=== PATIENT | female | born 1985 | race African-American/Black ===

== ENCOUNTER 2017-05-20 04:26 | Emergency (ER) | payer MEDICAID ==
[~2017-05-20] VITALS: Ht 149.9 cm; Wt 118.0 kg
[2017-05-20] MEDS ORDERED: SODIUM CHLORIDE 0.9% 1,000 ML IV ONE (06:39)
[2017-05-20] MEDS ORDERED: METHYLPREDNISOLONE SOD SUCC 125 MG/2 ML VIAL IV ONE (06:45)
[2017-05-20] MEDS ORDERED: CLINDAMYCIN 600 MG in DEXTROSE 5% WATER 50 ML IV ONE (06:45)
[2017-05-20] MEDS ORDERED: KETOROLAC 30MG/ML VIAL IV ONE (06:45)
[2017-05-20 07:06] LABS: BASOPHILS % 0.9 % (0.0-2.0); EOSINOPHILS % 1.9 % (0.0-5.0); HEMOGLOBIN. 12.4 g/dL (12.0-16.0); LYMPHOCYTES % 21.2 % (20.0-50.0); MEAN CORPUSCULAR HEMOGLOBIN 23.7 pg (28.0-32.0); MEAN CORPUSCULAR VOLUME 74.8 fL (81.0-99.0); MEAN PLATELET VOLUME 8.4 fl (7.4-10.4); MONOCYTES % 9.4 % (2.0-8.0); NEUTROPHILS % 66.6 % (40.0-76.0); PLATELET 265 x1000/uL (130-400); RED BLOOD CELL COUNT 5.22 mill/uL (4.2-5.4); RED CELL DISTRIBUTION WIDTH 15.5 % (11.6-14.6)
[2017-05-20 07:18] LABS: CARBON DIOXIDE 29 mEq/L (21-32); CHLORIDE 101 mEq/L (98-107); HCG SCREEN NEGATIVE
[2017-05-20 08:23] VITALS: BP 122/78
== END 2017-05-20 08:24 | disposition home or self-care (01) ==
LOC: ER 05:47
DX: J36 Peritonsillar abscess (principal); F17.200 Nicotine dependence, unspecified, uncomplicated; F12.10 Cannabis abuse, uncomplicated; J45.909 Unspecified asthma, uncomplicated
CPT/HCPCS: 36415; 80053; 82962; 84703; 85025; 87070; 87077; 87430; 96361; 96365; 96375; 99284; J1885; J2930; J3490; J7030; Z7610; J7060

== ENCOUNTER 2017-06-19 04:41 | Emergency (ER) | payer MEDICAID ==
[~2017-06-19] VITALS: Ht 149.9 cm; Wt 121.0 kg
[2017-06-19 07:27] LABS: BASOPHILS % 1.3 % (0.0-2.0); HEMATOCRIT. 37.5 % (36.0-48.0); HEMOGLOBIN. 12.1 g/dL (12.0-16.0); LYMPHOCYTES % 43.9 % (20.0-50.0); MEAN CORPUSCULAR HEMOGLOBIN 24.3 pg (28.0-32.0); MEAN CORPUSCULAR VOLUME 75.5 fL (81.0-99.0); MEAN PLATELET VOLUME 8.4 fl (7.4-10.4); MONOCYTES % 6.6 % (2.0-8.0); NEUTROPHILS % 46.2 % (40.0-76.0); PLATELET 278 x1000/uL (130-400); RED BLOOD CELL COUNT 4.97 mill/uL (4.2-5.4)
[2017-06-19 07:28] LABS: GLUCOSE URINE 3+ (NEGATIVE); KETONES URINE NEGATIVE (NEGATIVE); LEUKOCYTE ESTERASE URINE NEGATIVE (NEGATIVE); NITRITE URINE NEGATIVE (NEGATIVE); OCCULT BLOOD URINE TRACE (NEGATIVE); PH URINE 5.5 (4.5-8.0); PROTEIN URINE NEGATIVE (NEGATIVE); SPECIFIC GRAVITY URINE 1.041 (1.005-1.030); UROBILINOGEN URINE 0.2 E.U./dL (0.2-1.0)
[2017-06-19 07:30] LABS: CLARITY URINE CLOUDY (CLEAR); COLOR URINE YELLOW (YELLOW)
[2017-06-19 07:41] LABS: BETA HYDROXYBUTYRATE 0.1 mMol/L (0.0-0.3); CARBON DIOXIDE 32 mEq/L (21-32); CHLORIDE 100 mEq/L (98-107)
[2017-06-19 10:39] VITALS: BP 139/72
== END 2017-06-19 10:40 | disposition home or self-care (01) ==
LOC: ER 04:43
DX: E11.65 Type 2 diabetes mellitus with hyperglycemia (principal); G56.02 Carpal tunnel syndrome, left upper limb; J45.909 Unspecified asthma, uncomplicated; F17.210 Nicotine dependence, cigarettes, uncomplicated; F12.10 Cannabis abuse, uncomplicated; Z71.6 Tobacco abuse counseling; Z98.890 Other specified postprocedural states; Z91.19 Patient's noncompliance with other medical treatment and regimen; E66.9 Obesity, unspecified; Z79.84 Long term (current) use of oral hypoglycemic drugs; Z68.43 Body mass index [BMI] 50.0-59.9, adult
CPT/HCPCS: 36415; 70450; 80053; 81001; 81025; 82010; 85025; 93005; 99285; 99406; Z7610

== ENCOUNTER 2018-02-12 02:07 | Emergency (ER) | payer MEDICAID ==
[~2018-02-12] VITALS: Ht 149.9 cm; Wt 113.0 kg
[2018-02-12 03:35] VITALS: BP 99/71
[2018-02-12 04:29] LABS: CLARITY URINE CLOUDY (CLEAR); COLOR URINE YELLOW (YELLOW); KETONES URINE TRACE (NEGATIVE); LEUKOCYTE ESTERASE URINE 2+ (NEGATIVE); NITRITE URINE NEGATIVE (NEGATIVE); OCCULT BLOOD URINE NEGATIVE (NEGATIVE); PH URINE 5.5 (4.5-8.0); PROTEIN URINE NEGATIVE (NEGATIVE); SPECIFIC GRAVITY URINE 1.027 (1.005-1.030); UROBILINOGEN URINE 0.2 E.U./dL (0.2-1.0)
[2018-02-12 04:29] LABS: EOSINOPHILS % 2.7 % (0.0-5.0); HEMATOCRIT. 38.2 % (36.0-48.0); HEMOGLOBIN. 12.3 g/dL (12.0-16.0); LYMPHOCYTES % 37.2 % (20.0-50.0); MEAN CORPUSCULAR HEMOGLOBIN 24.5 pg (28.0-32.0); MEAN CORPUSCULAR VOLUME 76.5 fL (81.0-99.0); MEAN PLATELET VOLUME 7.9 fl (7.4-10.4); MONOCYTES % 7.7 % (2.0-8.0); NEUTROPHILS % 51.4 % (40.0-76.0); PLATELET 353 x1000/uL (130-400); RED CELL DISTRIBUTION WIDTH 15.9 % (11.6-14.6)
[2018-02-12 04:50] LABS: CHLORIDE 105 mEq/L (98-107)
== END 2018-02-12 05:40 | disposition home or self-care (01) ==
LOC: ER 02:07
DX: O23.41 Unspecified infection of urinary tract in pregnancy, first trimester (principal); R53.1 Weakness; O24.311 Unspecified pre-existing diabetes mellitus in pregnancy, first trimester; E11.649 Type 2 diabetes mellitus with hypoglycemia without coma; O99.331 Smoking (tobacco) complicating pregnancy, first trimester; O99.321 Drug use complicating pregnancy, first trimester; F12.90 Cannabis use, unspecified, uncomplicated; O26.891 Other specified pregnancy related conditions, first trimester; D72.829 Elevated white blood cell count, unspecified; J45.909 Unspecified asthma, uncomplicated; Z79.84 Long term (current) use of oral hypoglycemic drugs; Z3A.01 Less than 8 weeks gestation of pregnancy; Z98.890 Other specified postprocedural states
CPT/HCPCS: 36415; 80053; 81003; 82962; 85025; 87086; 93005; 99285

== ENCOUNTER 2018-02-24 23:49 | Emergency (ER) | payer MEDICAID ==
[~2018-02-24] VITALS: Ht 149.9 cm; Wt 115.0 kg
[2018-02-25] MEDS ORDERED: SODIUM CHLORIDE 0.9% 1,000 ML IV ONE (01:25)
[2018-02-25] MEDS ORDERED: ONDANSETRON 4MG ODT PO ONE (01:30)
[2018-02-25 01:59] LABS: BASOPHILS % 1.2 % (0.0-2.0); EOSINOPHILS % 0.5 % (0.0-5.0); HEMATOCRIT. 37.6 % (36.0-48.0); HEMOGLOBIN. 12.2 g/dL (12.0-16.0); LYMPHOCYTES % 26.2 % (20.0-50.0); MEAN CORPUSCULAR HEMOGLOBIN 24.9 pg (28.0-32.0); MEAN CORPUSCULAR VOLUME 76.4 fL (81.0-99.0); MEAN PLATELET VOLUME 7.9 fl (7.4-10.4); MONOCYTES % 7.6 % (2.0-8.0); NEUTROPHILS % 64.5 % (40.0-76.0); PLATELET 346 x1000/uL (130-400); RED BLOOD CELL COUNT 4.93 mill/uL (4.2-5.4); RED CELL DISTRIBUTION WIDTH 15.8 % (11.6-14.6)
[2018-02-25 02:01] LABS: CHLORIDE 102 mEq/L (98-107)
[2018-02-25 02:25] LABS: B-HCG QUANTITATIVE 38446 mIU/mL (<3)
[2018-02-25 04:36] VITALS: BP 100/51
== END 2018-02-25 05:06 | disposition home or self-care (01) ==
LOC: ER 02-25 00:14
DX: O21.9 Vomiting of pregnancy, unspecified (principal); O26.891 Other specified pregnancy related conditions, first trimester; R10.30 Lower abdominal pain, unspecified; O24.912 Unspecified diabetes mellitus in pregnancy, second trimester; Z3A.01 Less than 8 weeks gestation of pregnancy; Z87.891 Personal history of nicotine dependence
CPT/HCPCS: 36415; 76801; 76817; 80053; 82962; 84702; 85025; 86850; 86900; 86901; 96360; 96361; 99285; J7030; Q0162; Z7610

== ENCOUNTER 2018-04-02 23:16 | Emergency (ER) | payer MEDICAID ==
[~2018-04-02] VITALS: Ht 149.9 cm; Wt 122.0 kg
[2018-04-03 00:28] VITALS: BP 100/51
== END 2018-04-03 05:06 | disposition left against medical advice (07) ==
LOC: ER 23:16
DX: R51 Headache (principal); Z53.21 Procedure and treatment not carried out due to patient leaving prior to being seen by health care provider
CPT/HCPCS: 82962

== ENCOUNTER 2018-08-29 01:16 | Observation (INO) | payer MEDICAID ==
[~2018-08-29] VITALS: Ht 149.9 cm; Wt 131.1 kg
[2018-08-29] MEDS ORDERED: METF-815 PO (02:29)
[2018-08-29] MEDS ORDERED: PREN1TAB78 MT (02:29)
[2018-08-29] MEDS ORDERED: LACTATED RINGERS 1,000 ML IV SCH (03:00)
[2018-08-29] MEDS ORDERED: TERBUTALINE SULFATE 1MG/ML VIAL SUBCUT ONE (03:15)
[2018-08-29] MEDS ORDERED: BETAMETHASONE ACET/BETAMET 30 MG/5 ML VIAL IM SCH (03:15)
[2018-08-29 03:44] LABS: CLARITY URINE CLOUDY (CLEAR); COLOR URINE DARK YELLOW (YELLOW); KETONES URINE TRACE (NEGATIVE); LEUKOCYTE ESTERASE URINE 2+ (NEGATIVE); NITRITE URINE NEGATIVE (NEGATIVE); OCCULT BLOOD URINE NEGATIVE (NEGATIVE); PH URINE 5.5 (4.5-8.0); PROTEIN URINE 1+ (NEGATIVE); SPECIFIC GRAVITY URINE 1.027 (1.005-1.030)
[2018-08-29] MEDS ORDERED: CEFAZOLIN 2,000 MG in DEXT 5% WATER 100 ML IV SCH (05:00)
== END 2018-08-29 05:50 | disposition home or self-care (01) ==
LOC: L&D 01:16
PROVIDERS: ADMIT Obstetrics & Gynecology; ATTEND Obstetrics & Gynecology
DX: O26.893 Other specified pregnancy related conditions, third trimester (principal); R10.30 Lower abdominal pain, unspecified; Z3A.32 32 weeks gestation of pregnancy
CPT/HCPCS: 81003; 82731; 82962; 87086; 96365; 96372; G0378; J0690; J0702; J3105; J7120; 59412; 96360; 96361; J7060

== ENCOUNTER 2018-08-29 15:12 | Observation (INO) | payer MEDICAID ==
[~2018-08-29] VITALS: Ht 149.9 cm; Wt 131.1 kg
[~2018-08-29 15:12] MED LIST: METF-815 PO; PREN1TAB78 MT
[2018-08-29] MEDS ORDERED: BETAMETHASONE ACET/BETAMET 30 MG/5 ML VIAL IM SCH (15:45)
== END 2018-08-29 16:10 | disposition home or self-care (01) ==
LOC: L&D 15:12
PROVIDERS: ADMIT Obstetrics & Gynecology; ATTEND Obstetrics & Gynecology
DX: O62.9 Abnormality of forces of labor, unspecified (principal); Z3A.32 32 weeks gestation of pregnancy
CPT/HCPCS: 99281; G0378; J0702; 96372

== ENCOUNTER 2018-09-16 20:14 | Observation (INO) | payer MEDICAID ==
[~2018-09-16] VITALS: Ht 149.9 cm; Wt 131.1 kg
== END 2018-09-17 00:40 | disposition home or self-care (01) ==
LOC: L&D 20:14
PROVIDERS: ADMIT Obstetrics & Gynecology; ATTEND Obstetrics & Gynecology
DX: O26.893 Other specified pregnancy related conditions, third trimester (principal); R10.30 Lower abdominal pain, unspecified; G47.33 Obstructive sleep apnea (adult) (pediatric); Z3A.35 35 weeks gestation of pregnancy
CPT/HCPCS: G0378 ×2; 99281

== ENCOUNTER 2019-02-28 09:56 | Emergency (ER) | payer MEDICAID ==
[~2019-02-28] VITALS: Ht 149.9 cm; Wt 73.0 kg
[2019-02-28] MEDS ORDERED: IBUPROFEN 600MG TABLET PO STA (12:53)
[2019-02-28 14:25] VITALS: BP 148/69
== END 2019-02-28 14:30 | disposition home or self-care (01) ==
LOC: ER 10:02
DX: K05.00 Acute gingivitis, plaque induced (principal); F17.210 Nicotine dependence, cigarettes, uncomplicated; F12.90 Cannabis use, unspecified, uncomplicated
CPT/HCPCS: 81025; 87070; 87430; 99283

== ENCOUNTER 2023-01-11 09:32 | Emergency (ER) | payer MEDICAID ==
[~2023-01-11] VITALS: Ht 162.6 cm; Wt 78.0 kg
[~2023-01-11 09:32] MED LIST changes: -METF-815 PO; +METF-873 PO
[2023-01-11 09:46] VITALS: BP 114/88
[2023-01-11] MEDS ORDERED: IBUP-2029 MT (10:58)
== END 2023-01-11 11:42 | disposition home or self-care (01) ==
LOC: ER 09:32
DX: E11.65 Type 2 diabetes mellitus with hyperglycemia (principal); R51.9 Headache, unspecified; F12.10 Cannabis abuse, uncomplicated
CPT/HCPCS: 82962; 99281; 99282

== ENCOUNTER 2024-10-07 15:15 | Emergency (ER) | payer MEDICAID ==
[~2024-10-07] VITALS: Ht 149.9 cm; Wt 114.0 kg
[~2024-10-07 15:15] MED LIST changes: +IBUP-2029 MT
[2024-10-07 15:23] VITALS: BP 127/84; TEMP 98.4; O2SAT 100
[2024-10-07 15:25] VITALS: PULSE 91; RESP 16; O2SAT 98
[2024-10-07] MEDS ORDERED: LIDOCAINE HCL 1% 20ML VIAL INFIL ONE (18:00)
[2024-10-07] MEDS ORDERED: CEFTRIAXONE SODIUM 500MG VIAL IM ONE (18:00)
[2024-10-07 18:09] LABS: CLARITY URINE CLOUDY (CLEAR); COLOR URINE YELLOW (YELLOW); GLUCOSE URINE 3+ (NEGATIVE); KETONES URINE NEGATIVE (NEGATIVE); LEUKOCYTE ESTERASE URINE TRACE (NEGATIVE); NITRITE URINE NEGATIVE (NEGATIVE); OCCULT BLOOD URINE NEGATIVE (NEGATIVE); PH URINE 5.5 (4.5-8.0); PROTEIN URINE NEGATIVE (NEGATIVE); SPECIFIC GRAVITY URINE 1.036 (1.005-1.030)
[2024-10-07 19:15] LABS: BACTERIA URINE 4+; RBC URINE 0-2 /hpf (0-2); SQUAMOUS EPITHELIAL CELL URINE 2+ /lpf (RARE/1+)
[2024-10-07 19:16] LABS: YEAST URINE FEW
[2024-10-07] MEDS: CEFTRIAXONE SODIUM 500MG VIAL IM NR (19:43)
[2024-10-07] MEDS: LIDOCAINE HCL 1% 20ML VIAL INFIL NR (19:43)
[2024-10-07] MEDS ORDERED: DOXY100C5 MT (20:17)
[2024-10-07] MEDS ORDERED: FLUC150T46 MT (20:17)
[2024-10-07] MEDS ORDERED: NITR-87 MT (20:17)
[2024-10-10 05:15] LABS: CHLAMYDIA TRACHOMATIS NAA Negative (Negative); NEISSERIA GONORRHOEAE NAA Negative (Negative)
== END 2024-10-07 20:30 | disposition home or self-care (01) ==
LOC: ER 15:15
DX: N39.0 Urinary tract infection, site not specified (principal); N89.8 Other specified noninflammatory disorders of vagina; R05.9 Cough, unspecified; E11.9 Type 2 diabetes mellitus without complications; Z79.84 Long term (current) use of oral hypoglycemic drugs
CPT/HCPCS: 87491; 87591; 81003; 81025; 96372; 99283; J0696; J3490; Z7610 ×2

== ENCOUNTER 2025-05-07 12:56 | Emergency (ER) | payer SELFPAY ==
[~2025-05-07] VITALS: Ht 149.9 cm; Wt 113.0 kg
[~2025-05-07 12:56] MED LIST changes: +DOXY100C5 MT; +FLUC150T46 MT; +METF-1149 PO; -METF-873 PO; +NITR-87 MT
[2025-05-07 12:58] VITALS: TEMP 36.9; O2SAT 100
[2025-05-07 14:07] VITALS: TEMP 98.1
[2025-05-07] MEDS: ACETAMINOPHEN 325MG TABLET PO ONE (14:07)
[2025-05-07] MEDS ORDERED: LIDO-53 TP (14:58)
[2025-05-07 15:19] VITALS: BP 117/82; PULSE 78; RESP 16; O2SAT 100
== END 2025-05-07 15:25 | disposition home or self-care (01) ==
LOC: ER 13:00
DX: M79.601 Pain in right arm (principal); E11.9 Type 2 diabetes mellitus without complications; Z79.84 Long term (current) use of oral hypoglycemic drugs
CPT/HCPCS: 99283; 73090; A6449; A4565

== ENCOUNTER 2025-07-08 14:17 | Emergency (ER) | payer SELFPAY ==
[~2025-07-08] VITALS: Ht 149.9 cm; Wt 113.0 kg
[~2025-07-08 14:17] MED LIST changes: +LIDO-53 TP
[2025-07-08 14:27] VITALS: O2SAT 99
[2025-07-08] MEDS: HYDROCODONE/ACETAMINOPHEN 5/325MG TABLET PO ONE (17:24)
[2025-07-08 17:32] LABS: BASOPHILS % 0.5 % (0.0-2.0); EOSINOPHILS % 0.5 % (0.0-5.0); HEMATOCRIT. 38.9 % (36.0-48.0); HEMOGLOBIN. 12.4 g/dL (12.0-16.0); LYMPHOCYTES % 18.4 % (20.0-50.0); MEAN PLATELET VOLUME 7.9 fl (7.4-10.4); MONOCYTES % 9.8 % (2.0-8.0); NEUTROPHILS % 70.8 % (40.0-76.0); PLATELET 229 x1000/uL (130-400); RED BLOOD CELL COUNT 4.95 mill/uL (4.2-5.4); RED CELL DISTRIBUTION WIDTH 15.0 % (11.6-14.6)
[2025-07-08 17:48] LABS: CREATININE 0.8 mg/dL (0.6-1.0); HCG SCREEN NEGATIVE; UREA NITROGEN BLOOD 7 mg/dL (9-23)
[2025-07-08] MEDS ORDERED: ACET-2708 MT (19:28)
[2025-07-08 19:40] VITALS: BP 121/80; PULSE 99; RESP 20; TEMP 36.7; O2SAT 100
== END 2025-07-08 19:43 | disposition home or self-care (01) ==
LOC: ER 14:17
DX: R51.9 Headache, unspecified (principal); E11.9 Type 2 diabetes mellitus without complications; F12.90 Cannabis use, unspecified, uncomplicated; Z98.890 Other specified postprocedural states
CPT/HCPCS: 36415; 71045; 80048; 84703; 85025; 99284